=== PATIENT | male | born 1965 | race African-American/Black ===

== ENCOUNTER 2019-04-26 12:03 | Day surgery (SDC) | payer MEDICARE, OTHER ==
[~2019-04-26] VITALS: Ht 170.2 cm; Wt 91.8 kg
[2019-04-26 13:58] VITALS: Ht 170.2 cm; Wt 91.8 kg
[2019-04-26] MEDS ORDERED: METO-319 PO (14:11)
[2019-04-26] MEDS ORDERED: LISI40TA3 PO (14:11)
[2019-04-26] MEDS ORDERED: RSV10T PO (14:11)
[2019-04-26] MEDS ORDERED: TYLENOL #4 (14:11)
[2019-04-26] MEDS ORDERED: SERT100T PO (14:11)
[2019-04-26 14:19] VITALS: BP 165/96; PULSE 86; RESP 16
--- NOTE | 2019-04-26 14:28 | PREAC ---
Date/Time of Note Date/Time of Note DATE: 04/26/19 TIME: 14:27 Anesthesia Eval and Record Evaluation Time Pre-Procedure Interview DATE: 04/26/19 TIME: 14:27 Age 53 Sex male NPO: 8 hrs Preoperative diagnosis reflux esophagitis, occult blood stool Planned procedure EGD, colonoscopy Past Medical History Past Medical History: Includes Cardio: HTN, Dyslipidemia Musculoskeletal: Osteoarthritis GI: Obesity Psych: Depression Surgery & Anesthesia Issues No known issue Meds Anticoagulation: No Beta Mine within 24 hr: Yes Reason Beta Mine not given: Bradycarida, Hypotension Reported Medications Sertraline Hcl* (Zoloft*) 100 Mg Tablet, 100 MG PO DAILY, #30 TAB 04/26/19 [Tylenol #4] No Conflict Check 04/26/19 Rosuvastatin Calcium* (Crestor*) 10 Mg Tablet, 10 MG PO QHS, #30 TAB 04/26/19 Metoprolol Succinate* (Toprol XL*) 50 Mg Tab.er.24h, 50 MG PO DAILY, #30 TAB 04/26/19 Lisinopril* (Lisinopril*) 40 Mg Tablet, 40 MG PO DAILY, #30 TAB 04/26/19 Meds reviewed: Yes Allergies Coded Allergies: Penicillins (Verified Allergy, Unknown, SWELLING, 04/26/19) Allergies Reviewed: Yes Labs/Studies Labs Reviewed: Reviewed by anesthesiologist test: N/A Pre-procedure Exam Last vitals Vital Signs Date Temp Pulse Resp B/P (MAP) Pulse Ox O2 O2 Flow FiO2 Time Delivery Rate 04/26/19 97.1 86 16 165/96 100 Room Air 14:19 (119) Airway: Adequate mouth opening, Adequate thyromental dist Mallampati: Mallampati II Teeth: Normal Lung: Normal Heart: Normal ASA Physical Status ASA physical status: 2 Emergency: None Planned Anesthetic General/MAC: Mask Planned Pain Management Parenteral pain med Pre-operative Attestations Prior to commencing anesthesia and surgery, the patient was re-evaluated, there was verification of: *The patient's identity *The results of appropriate recent lab work and preoperative vital signs *The above evaluation not changing prior to induction *Anesthetic plan, risk benefits, alternative and complications discussed with patient/family; questions answered; patient/family understands, accepts and wishes to proceed. KIRSTIE APPIAH MD Apr 26, 2019 14:28
[2019-04-26] MEDS ORDERED: ONDANSETRON 4 MG INJ IV PRN (14:30)
[2019-04-26] MEDS ORDERED: LIDOCAINE 2% (SDV) 5 ML INJ ONE (14:36)
[2019-04-26] MEDS ORDERED: PROPOFOL 60 ML ONE (14:36)
--- NOTE | 2019-04-26 15:24 | PAC ---
Date/Time of Note Date/Time of Note DATE: 04/26/19 TIME: 15:23 Post-Anesthesia Notes Post-Anesthesia Note Last documented vital signs Vital Signs Date Temp Pulse Resp B/P (MAP) Pulse Ox O2 O2 Flow FiO2 Time Delivery Rate 04/26/19 97.1 86 16 165/96 100 Room Air 14:19 (119) Activity: WNL Respiratory function: WNL Cardiovascular function: WNL Mental status: Baseline Pain reasonably controlled: Yes Hydration appropriate: Yes Nausea/Vomiting absent: Yes Comments BP: 139/75 HR: 99 RR: 16 T: 98 SaO2: 100% KIRSTIE APPIAH MD Apr 26, 2019 15:24
== END 2019-04-26 17:47 | disposition home or self-care (01) ==
LOC: GIL 12:03
PROVIDERS: ATTEND Internal Medicine Gastroenterology
DX: K21.9 Gastro-esophageal reflux disease without esophagitis (principal); K29.30 Chronic superficial gastritis without bleeding; D12.5 Benign neoplasm of sigmoid colon; I10 Essential (primary) hypertension; E78.5 Hyperlipidemia, unspecified
CPT/HCPCS: 88305; 88312